=== PATIENT | male | born 1935 | race Caucasian/White ===

== ENCOUNTER 2023-05-08 07:48 | Outpatient (CLI) | payer MEDICARE, OTHER | END 2023-05-08 07:49 | disposition home or self-care (01) | LOC: CSHCT 07:48 | PROVIDERS: ATTEND Student in an Organized Health Care Education/Training Program | DX: C76.0 Malignant neoplasm of head, face and neck (principal); R22.0 Localized swelling, mass and lump, head | CPT/HCPCS: 70491 ==